=== PATIENT | female | born 1960 | race Asian ===

== ENCOUNTER 2018-04-08 06:08 | Day surgery (SDC) | payer OTHER ==
[2018-04-08] MEDS ORDERED: SOD CHLORIDE 0.9% 1,000 ML IV (06:30)
[2018-04-08] MEDS ORDERED: CEFAZOLIN 2 GM/50 ML (PMX) 50 ML IVPB (06:30)
[2018-04-08] MEDS: BUPIVACAINE 0.25% (MPF) 30 ML INJ (07:19)
[2018-04-08] MEDS ORDERED: GLYCOPYRROLATE 0.4 MG INJ (07:19)
[2018-04-08] MEDS ORDERED: MIDAZOLAM 1 MG/ML 2 ML INJ (07:19)
[2018-04-08] MEDS ORDERED: CEFAZOLIN 1 GM INJ (07:19)
[2018-04-08] MEDS ORDERED: NEOSTIGMINE 3 MG/3 ML SYRINGE (07:19)
[2018-04-08] MEDS ORDERED: PROPOFOL 20 ML (07:19)
[2018-04-08] MEDS ORDERED: ROCURONIUM 50 MG INJ (07:19)
[2018-04-08] MEDS ORDERED: ONDANSETRON 4 MG INJ (07:20)
[2018-04-08] MEDS ORDERED: FENTAnyl 50 MCG/ML VIAL (07:20)
[2018-04-08] MEDS ORDERED: DEXAMETHASONE 4 MG/ML 1 ML INJ (07:20)
[2018-04-08] MEDS ORDERED: BUPIVACAINE 0.25% (MPF) 30 ML INJ (07:26)
[2018-04-08] MEDS ORDERED: IPRATROPIUM (NEB) 0.5 MG/2.5 ML AMP HHN (08:00)
[2018-04-08] MEDS ORDERED: MEPERIDINE 25 MG INJ IV (08:00)
[2018-04-08] MEDS ORDERED: DIPHENHYDRAMINE 50 MG INJ IV (08:00)
[2018-04-08] MEDS ORDERED: FENTAnyl 50 MCG/ML VIAL IV (08:00)
[2018-04-08] MEDS ORDERED: OXYCODONE/ACETAMINOPHEN (5/325) TAB PO (08:00)
[2018-04-08] MEDS ORDERED: MIDAZOLAM 1 MG/ML 2 ML INJ IV (08:00)
[2018-04-08] MEDS ORDERED: HYDROmorphONE 1 MG/5 ML IV SYRINGE IV ×2 (08:00)
[2018-04-08] MEDS ORDERED: EPHEDrine SULFATE 50 MG/5 ML SYG IV (08:00)
[2018-04-08] MEDS ORDERED: ONDANSETRON 4 MG INJ IV (08:00)
[2018-04-08] MEDS ORDERED: LABETALOL HCL 20MG INJ IV (08:00)
[2018-04-08] MEDS ORDERED: ALBUTEROL 0.083% (NEB) 2.5 MG/3 ML AMP HHN (08:00)
[2018-04-08] MEDS ORDERED: TRIMETHOBENZAMIDE 100 MG/ML VIAL IM (08:00)
[2018-04-08] MEDS ORDERED: SUGAMMADEX SODIUM 200 MG/2 ML VIAL IV (08:07)
[2018-04-08] MEDS ORDERED: HYDROCODONE/APAP (5/325) TAB PO (08:30)
[2018-04-08] MEDS: hydrALAzine 20 MG INJ IV (08:34)
[2018-04-08] MEDS: FENTAnyl 50 MCG/ML VIAL IV ×2 (08:34→09:06)
[2018-04-08] MEDS: HYDROmorphONE 1 MG/5 ML IV SYRINGE IV (08:44)
[2018-04-08] MEDS: OXYCODONE/ACETAMINOPHEN (5/325) TAB PO (09:21)
== END 2018-04-08 10:30 | disposition home or self-care (01) ==
LOC: SDS 06:08
DX: K82.4 Cholesterolosis of gallbladder (principal)
CPT/HCPCS: 47562; 88304